=== PATIENT | female | born 1985 | race Caucasian/White ===

== ENCOUNTER 2019-04-07 12:55 | Inpatient (IN) ==
[2019-04-07] MEDS ORDERED: DEXTROSE 5%-LACTATED RINGERS 1,000 ML IV PRN (12:58)
[2019-04-07] MEDS ORDERED: OXYTOCIN/DEXTROSE 5%-WATER 30 UNITS/500 ML BAG IV ONE ×2 (12:58→23:19)
[2019-04-07] MEDS ORDERED: RINGER'S SOLUTION,LACTATED 1,000 ML IV ONE (12:58)
[2019-04-07 14:38] LABS: Cocaine Ur Negative (NEGATIVE); Urine Barbiturate Negative (NEGATIVE); Urine Benzodiazepines Negative (NEGATIVE); Urine Opiates Negative (NEGATIVE); Urine PCP Negative (NEGATIVE); Urine THC Negative (NEGATIVE)
--- NOTE | 2019-04-07 17:41 | HP ---
Chief Complaint - Chief Complaint Date of Service: 04/07/19 Time of Service: 17:21 Chief Complaint: elevated BP History of Present Illness: 34 yo at 39 1/7 weeks presents to L&D from office for induction of labor. Patient had an elevated blood pressure in office today. Preeclamptic labs were WNL, but NST showed a 2+ min spontaneous deceleration 30 beats below baseline and a late deceleration a few minutes later. She was also jannie q2-3 min. Because of this and a favorable cervix at term, she was sent to L&D for delivery. Over the past few hours in L&D she has continued to have intermittently mildly elevated BPs. This complicated by h/o PTD (36wks) and GHTN. Rh positive Rubella immune GBS negative. Medical History (Updated 12/08/18 @ 13:34 by Vikas Lyons LPN) GERD (gastroesophageal reflux disease) (Chronic) Witnessed episode of apnea (Chronic) Snores (Chronic) History of delivery, currently (Acute) Anemia as a teenager Constipation Onset Date: Unknown Wears glasses Onset Date: Unknown delivery Onset Date: 01/16/14 36 wks Surgical History: Surgical History (Updated 09/16/18 @ 13:13 by Indu Ocampo RN) History of discectomy Onset Date: ~2015Oct 2015 & Sep [address] Grimes at [facility]. Hx of adenoidectomy as a child Hx of tympanostomy tubes as a child [place] teeth extracted Family History: Family History (Updated 09/02/18 @ 11:25 by Saran Tracy RN) Mother Thyroid Problems Diabetes Hypertension Father Cancer Duodenal cancer & liver cancer Sleep apnea Leukemia Grandmother Asthma Heart disease Grandmother Cancer Thyroid, adrenal & lung cancer Leukemia Lactose intolerance Osteoporosis Grandfather Cancer liver & colon Grandfather Leukemia CVA (cerebral vascular accident) Myocardial infarction Social History: (Last Reviewed 04/07/19 @ 17:31 by Paul Meraz DO) Social History: adopted: No residential: No Marital status: lives independently: Yes household members: significant other, children number of children: 1 current occupational status: employed current occupation: [employer] Highest education level completed: high school graduate Service: No Tobacco: Smoking Status: Never smoker Alcohol: alcohol intake: current alcohol intake frequency: a few times a month details: none with Substance Use: substance use type: does not use Dietary Habits: caffeine: Yes caffeine comment: 1-3/week Exercise: Physical activity type: none Review Of Systems (GEN) - Review of Systems Generalized/Overall Review: Present: No Symptoms Reported EENTM: Present: No Symptoms Reported Respiratory: Present: No Symptoms Reported Cardiac: Present: No Symptoms Reported Abdominal: Present: Other - mild contractions Genitourinary: Present: No Symptoms Reported Musculoskeletal: Present: No Symptoms Reported Neurological: Present: No Symptoms Reported Skin: Present: No Symptoms Reported Allergies/Adverse Reactions: Allergies Allergy/AdvReac Type Severity Reaction Status Date / Time Penicillins Allergy Unknown unknow- Verified 04/07/19 13:02 amoxicillin AdvReac Unknown upset Verified 04/07/19 13:02 stomach Home Medications: HOME MEDICATIONS Vits96/Iron Fum/Folic [ S] 1 tab PO DAILY 04/07/19 [Last Taken Unknown] Exam - Exam Vital Signs: Vital Signs - Last Taken Temp 37.1 C 04/07/19 13:40 Pulse 102 H 04/07/19 13:40 Resp 16 04/07/19 13:40 BP 129/79 04/07/19 13:40 Pulse Ox 100 04/07/19 13:40 Constitutional: Present: Alert, Oriented x3, Cooperative ENT Exam: Present: hearing grossly normal Breasts: Present: Exam deferred Respiratory: Present: lungs clear, no respiratory distress Cardiovascular/Chest: Present: regular rate, rhythm, no edema Abdomen: Present: soft, no rebound tenderness, other - gravid /Rectal: Present: Other - 3-4/80/-3 Extremity: Present: no pedal edema, no calf tenderness Skin Exam: Present: normal color, warm/dry, no cyanosis Neurologic: Present: alert, normal mood/affect, oriented x 3 Appearance: Present: appropriate appearance, appropriate insight Eye contact: Present: cooperative, good eye contact Thoughts: Present: normal thought pattern Diagnostic Studies: Laboratory Results Negative (NEGATIVE) 04/07/19 14:00 Negative (NEGATIVE) 04/07/19 14:00 Ur Phencyclidine Scrn Negative (NEGATIVE) 04/07/19 14:00 Urine Amphetamine Negative (NEGATIVE) 04/07/19 14:00 U Benzodiazepines Scrn Negative (NEGATIVE) 04/07/19 14:00 Negative (NEGATIVE) 04/07/19 14:00 Negative (NEGATIVE) 04/07/19 14:00 NST reactive Assessment/Plan - Assessment/Plan (1) Encounter for induction of labor Assessment: Admit for pitocin induction of labor for GHTN late deceleration on NST in office. Epidural PRN. Problem: Acute (2) Gestational hypertension Problem: Acute Qualifiers: Trimester: third trimester Qualified Code(s): O13.3 - Gestational [-induced] hypertension without significant proteinuria, third trimester (3) History of delivery, currently Problem: Chronic
--- NOTE | 2019-04-07 17:49 | PN ---
Progess Note - Interim Date: 04/07/19 Time: 17:41 Narrative: 04/07/19 17:41 Patient rating contractions as mild Vital signs stable with an occasional mildly elevated blood pressure. Pitocin started at 2 mu/min. FHT: 150 baseline, reassuring contractions q 1-3 min Cervix: 4/70/-2, AROM-clear Impression: Intrauterine at 39 1/7 weeks induction of labor for gestational hypertension and late deceleration on antepartum testing. Plan: Continue present plan
[2019-04-07] MEDS ORDERED: NALOXONE HCL 1 MG/1 ML SYRG IV PRN (20:13)
[2019-04-07] MEDS ORDERED: ONDANSETRON HCL/PF 2 MG/ML VIAL IV PRN (20:13)
[2019-04-07] MEDS ORDERED: BUPIVACAINE HCL/0.9 % NACL/PF 250 ML EP PRN (20:13)
[2019-04-07] MEDS ORDERED: fentaNYL CITRATE/PF 50 MCG/ML AMPUL IT SCH (20:15)
--- NOTE | 2019-04-07 21:23 | ANES ---
Anesthesia Pre Procedure Eval Vitals/Labs: Last Vital Signs Temp 37.1 C 04/07/19 13:40 Pulse 102 H 04/07/19 13:40 Resp 16 04/07/19 13:40 BP 129/79 04/07/19 13:40 Pulse Ox 100 04/07/19 13:40 HOME MEDICATIONS Vits96/Iron Fum/Folic [ S] 1 tab PO DAILY 04/07/19 [Last Taken Unknown] Allergies/Adverse Reactions: Allergies Allergy/AdvReac Type Severity Reaction Status Date / Time Penicillins Allergy Unknown unknow- Verified 04/07/19 13:02 amoxicillin AdvReac Unknown upset Verified 04/07/19 13:02 stomach - Planned Procedure Planned Procedure: ACTIVE LABOR Medication List Reviewed:: Yes Allergies Verified: Yes Medical History (Updated 04/07/19 @ 17:41 by Paul Meraz DO) GERD (gastroesophageal reflux disease) (Chronic) Witnessed episode of apnea (Chronic) Snores (Chronic) History of delivery, currently (Chronic) Anemia as a teenager Constipation Onset Date: Unknown Wears glasses Onset Date: Unknown delivery Onset Date: 01/16/14 36 wks Surgical History (Updated 04/07/19 @ 17:41 by Paul Meraz DO) History of discectomy Onset Date: ~2015Oct 2015 & Sep [address] Grimes at [facility]. Hx of adenoidectomy as a child Hx of tympanostomy tubes as a child [place] teeth extracted Family History (Updated 09/02/18 @ 11:25 by Saran Tracy RN) Mother Thyroid Problems Diabetes Hypertension Father Cancer Duodenal cancer & liver cancer Sleep apnea Leukemia Grandmother Asthma Heart disease Grandmother Cancer Thyroid, adrenal & lung cancer Leukemia Lactose intolerance Osteoporosis Grandfather Cancer liver & colon Grandfather Leukemia CVA (cerebral vascular accident) Myocardial infarction - Family Anesthesia History Family History:: no untoward family reactions to anesthesia - Airway/Neck/Teeth Within Normal Limits:: Yes Teeth Condition: intact Neck Exam: full range of motion Mallampatti Score: 2 Thyromental (T-M) distance: > 6 cm Mandibulo Hyoid distance: > 3 cm - Respiratory Smoking Status: Never smoker Sleep Apnea currently treated: No Sleep Apnea by current assessment: No - Cardiovascular Tolerate Activity: Good - Anesthesia Assessment and Plan ASA Class: PS, II, E Anesthesia Type Plan: Epidural Planned difficult intubation/equipment available: No
--- NOTE | 2019-04-07 21:24 | ANES ---
Post Anesthesia Discharge - Transfer of Care Transfer of Care handoff given to nurse: Yes - Anesthesia Post Op Note Anesthesia Post Op Note: Care transferred to OB RN
--- NOTE | 2019-04-07 21:24 | ANES ---
Post Anesthesia Assessment - Vital Signs Vitals: Last Vital Signs Temp 37.1 C 04/07/19 13:40 Pulse 102 H 04/07/19 13:40 Resp 16 04/07/19 13:40 BP 129/79 04/07/19 13:40 Pulse Ox 100 04/07/19 13:40 Airway Patency: Normal - Mental Status Level Of Consciousness: Awake - Pain Level Pain Score: 2 - N/V Assessment Nausea/Vomiting Presence: None Dehydration:: No
--- NOTE | 2019-04-07 21:26 | ANES ---
Anesthesia Procedure Note Procedure Note: ANESTHESIA PROCEDURE NOTE Date of Procedure: 04/07/2019 Time of procedure: 2109. Performed by: Kit Zapata CRNA Product Builder: None. Preprocedure diagnosis: Active labor. Post procedure diagnosis: Same. Procedure: Insertion of labor epidural. Indications: The patient is a 34-year-old multigravida female in active labor requesting labor epidural for pain management. Findings: See below. Details of the procedure: The patient was placed in a sitting position. Back was prepped with DuraPrep. Patient was then draped in a sterile fashion. Lidocaine 1% was infiltrated to the skin and subcutaneous tissues at the level of the L3 4 interspace. The epidural space was identified using a 18-gauge Tuohy needle with [id number] technique. 20 mcg fentanyl was given intrathecally using a 27 ga. spinal needle. Epidural catheter was inserted without difficulty. Negative test dose was elicited using 5 mL of 1.5% preservative-free lidocaine plus epinephrine 1 200,000. The epidural catheter was then taped and secured in place. EBL: Minimal. Fluids: N/A. Specimen: N/A. Post procedure condition: The patient tolerated the procedure well. No complications were noted. Thank you for this consultation. Crespo CRNA
[2019-04-07] MEDS ORDERED: GLYCERIN/WITCH HAZEL LEAF 40 APPL BOX TP PRN (23:19)
[2019-04-07] MEDS ORDERED: BENZOCAINE/MENTHOL 81 SPRAY CAN TP PRN (23:19)
[2019-04-07] MEDS ORDERED: HYDROCORTISONE 30 APPL TUBE TP PRN (23:19)
[2019-04-07] MEDS ORDERED: oxyCODONE HCL/ACETAMINOPHEN 1 TAB TABLET PO PRN (23:19)
[2019-04-07] MEDS ORDERED: BISACODYL 10 MG SUPP.RECT RC PRN (23:19)
[2019-04-07] MEDS ORDERED: SENNOSIDES 8.6 MG TABLET PO PRN (23:19)
[2019-04-07] MEDS ORDERED: HYDROcodone/ACETAMINOPHEN 1 EACH TABLET PO PRN (23:19)
[2019-04-07] MEDS ORDERED: IBUPROFEN 800 MG TABLET PO PRN (23:19)
--- NOTE | 2019-04-07 23:21 | OR ---
Operative Report - Dictated Report Narrative: Spontaneous vaginal delivery of vigorously crying viable male at 2258 on 04/07/2019 with Apgars 9 and 9, weighing 3431 g in PARK position with right foot cord x1. Cord clamping delayed approximately 1 minute Placenta delivered complete, intact, with three vessel cord Estimated blood loss: Less than 50 ml Anesthesia: Epidural Lacerations: None History for MU History for Definition: * The number of deliveries resulting in a live the patient experienced prior to current hospitalization * The previous delivery of live twins or any live multiple gestation is considered one live event. *If primagravida or nulliparous is documented select zero for the number of previous live births. Live Events: Live Events: 1
[2019-04-08] MEDS: IBUPROFEN 800 MG TABLET PO PRN ×3 (00:47→17:16)
[2019-04-08] MEDS: DOCUSATE SODIUM 100 MG CAPSULE PO SCH ×2 (08:48→21:12)
[2019-04-08] MEDS: PRENATAL VITS96/IRON FUM/FOLIC 1 TAB TABLET PO SCH (08:48)
--- NOTE | 2019-04-08 10:44 | PN ---
Subjective - Date and Time Seen Date: 04/08/19 Time: 10:43 Objective - Vitals Vitals: Last Vital Signs Temp 36.7 C 04/08/19 08:14 Pulse 76 04/08/19 08:14 Resp 16 04/08/19 08:14 BP 116/67 04/08/19 08:14 Pulse Ox 99 04/08/19 08:14 Patient denies complaints. Lochia wnl Abdomen - soft, nontender Uterus - firm, at umbilicus - 1 No calf tenderness Impression: day #1 - s/p spontaneous vaginal delivery. Gestational hypertension-resolved Plan: Continue routine care. Continue to observe for preeclampsia signs/symptoms. Assessment/Plan - Problems/Diagnosis (1) Encounter for induction of labor Problem: Acute (2) Gestational hypertension Problem: Acute Qualifiers: Trimester: third trimester Qualified Code(s): O13.3 - Gestational [-induced] hypertension without significant proteinuria, third trimester (3) History of delivery, currently Problem: Chronic
[2019-04-09] MEDS: IBUPROFEN 800 MG TABLET PO PRN ×2 (00:09→07:35)
[2019-04-09] MEDS: DOCUSATE SODIUM 100 MG CAPSULE PO SCH ×2 (07:36→08:22)
[2019-04-09] MEDS: PRENATAL VITS96/IRON FUM/FOLIC 1 TAB TABLET PO SCH ×2 (07:36→08:22)
[2019-04-09 08:04] VITALS: BP 134/76
[2019-04-09] MEDS ORDERED: ACETAMINOPHEN 500 MG TABLET PO ONE (08:51)
--- NOTE | 2019-04-09 14:07 | PN ---
Subjective - Date and Time Seen Date: 04/09/19 Time: 14:06 Objective - Vitals Vitals: Last Vital Signs Temp 36.6 C 04/09/19 06:50 Pulse 96 04/09/19 06:50 Resp 14 04/09/19 06:50 BP 134/76 04/09/19 06:50 Pulse Ox 98 04/09/19 06:50 Patient denies complaints. Breast-feeding well Lochia wnl abdomen - soft, nontender Uterus -firm, at umbilicus - 2 no calf tenderness Impression: day #2 - s/p spontaneous vaginal delivery. Gestational hypertension-resolved Plan: Routine discharge instructions. Preeclampsia precautions. Assessment/Plan - Problems/Diagnosis (1) Encounter for induction of labor Problem: Acute (2) Gestational hypertension Problem: Acute Qualifiers: Trimester: third trimester Qualified Code(s): O13.3 - Gestational [-induced] hypertension without significant proteinuria, third t rimester (3) History of delivery, currently Problem: Chronic
== END 2019-04-09 14:20 | disposition home or self-care (01) | DRG 807 ==
LOC: OB 12:55
PROVIDERS: ADMIT Obstetrics & Gynecology; ATTEND Obstetrics & Gynecology
CPT/HCPCS: 59025; 80307